=== PATIENT | male | born 1955 | race Caucasian/White ===

== ENCOUNTER → 2017-12-24 | Outpatient (CLI) | payer OTHER ==
[~2017-12-24] MED LIST: ASPIRIN81 M1 PO; CLARAVIS10 MG PO; COREG25 MG PO; DILTIAZEM60 MG PO; HYDROCHLOROTHIA25 M1 PO; IRON325 M1 PO; IRON50 MG PO; ISOSORBIDE30 MG PO; KLOR-CON M1010 ME1 PO; LABETALOL200 MG PO; LASIX20 MG PO; LEVOTHYROXIN0.125 MG PO; LISINOPRIL/HCTZ1 TA3 PO; LOSARTAN POTAS100 MG PO; METOPROLOL SR25 MG PO; MUCINEX DM 30/61 TAB PO; NITROQUICK0.3 MG SL; PREVACID30 M1 PO; SYNTHROID,LEV150 MCG PO; TYLENOL650 M1 PO; VITAMIN D31000 I1 PO; VYTORIN 10 MG-21 TA2 PO; [UNRECOGNIZED DRUG - CODE] PO
--- NOTE | ~2017-12-24 | ST ---
[place], [place] EXERCISE STRESS TEST REPORT NAME: JHONATHAN PIMENTEL UNIT #: [id number] ROOM: DOCTOR: ROD PAREDES [facility],DARIEL BIRTHDATE: [birth year] DOS: 12/24/2017 LEXISCAN REPORT The patient received Lexiscan 0.4 mg over 10 seconds. Heart rate is 98. No ischemic changes on EKG. Isotope was injected and the patient tolerated the procedure well. No complication noted. Blood pressure is 156/90. Myocardial perfusion scan to follow. DAIREL VELASCO MD CM:STRESS:EXERCISE STRESS TEST REPORT [id number] DARIEL VELASCO MD [facility]
== END | disposition home or self-care (01) ==
LOC: CARD 01:29
DX: I25.110 Atherosclerotic heart disease of native coronary artery with unstable angina pectoris (principal); R53.81 Other malaise

== ENCOUNTER 2018-04-20 09:21 | Emergency (ER) | payer OTHER ==
[~2018-04-20] VITALS: Wt 136.1 kg
[2018-04-20 09:38] LABS: BASO % 0.4 % (0.0-1.0); EOS # 0.2 10*3/uL (0.0-0.4); EOS % 1.9 % (1.0-4.0); HEMATOCRIT 35.9 % (42.0-52.0); HEMOGLOBIN 11.5 g/dl (14.0-18.0); LYMPH % 12.6 % (27.0-41.0); MEAN CELL VOLUME 91.8 fl (80.0-94.0); MEAN CORPUSCULAR HGB 29.4 pg (27.0-31.0); MEAN PLATELET VOLUME 10.8 fl (9.6-12.3); MONO # 0.8 10*3/uL (0.1-1.0); MONO % 10.6 % (3.0-9.0); NEUT # 5.8 10*3/uL (2.3-7.9); PLATELET COUNT AUTOMATED 99 10*3/uL (130-400); RED BLOOD COUNT 3.91 10*6/uL (4.50-5.90); RED CELL DISTRI WIDTH 16.9 % (0-14.5); WHITE BLOOD COUNT 7.8 10*3/uL (4.8-10.8)
[2018-04-20 09:57] LABS: ALBUMIN 3.1 gm/dl (3.1-4.5); CREATININE 1.74 mg/dL (0.70-1.30); POTASSIUM 4.7 mmol/L (3.5-5.1); TOTAL PROTEIN 6.7 gm/dL (6.4-8.2)
[2018-04-20 12:11] VITALS: BP 130/71
== END 2018-04-20 12:48 | disposition home or self-care (01) ==
LOC: ED 09:21
PROVIDERS: Emergency Medicine
DX: R51 Headache (principal); Z88.8 Allergy status to other drugs, medicaments and biological substances; Z79.82 Long term (current) use of aspirin; Z79.899 Other long term (current) drug therapy; Z90.49 Acquired absence of other specified parts of digestive tract

== ENCOUNTER → 2018-10-20 | Outpatient (CLI) | payer OTHER ==
[~2018-10-20] MED LIST changes: +RANEXA500 M1 PO
[2018-10-20 12:17] LABS: HEMATOCRIT 40.6 % (42.0-52.0); HEMOGLOBIN 12.5 g/dl (14.0-18.0); MEAN CELL VOLUME 92.1 fl (80.0-94.0); MEAN CORPUSCULAR HGB 28.3 pg (27.0-31.0); MEAN CORPUSCULAR HGB CONC 30.8 g/dl (33.0-37.0); MEAN PLATELET VOLUME 10.9 fl (9.6-12.3); PLATELET COUNT AUTOMATED 158 10*3/uL (130-400); RED BLOOD COUNT 4.41 10*6/uL (4.50-5.90); RED CELL DISTRI WIDTH 16.1 % (0-14.5); WHITE BLOOD COUNT 6.8 10*3/uL (4.8-10.8)
[2018-10-20 12:41] LABS: ATYPICAL LYMPHS 2 % (0-0); PLATELET SUFFICIENCY NORMAL (NORMAL); TOTAL CELLS COUNTED 100 #CELLS
[2018-10-20 12:51] LABS: ALBUMIN 3.5 gm/dl (3.1-4.5); BUN 11 mg/dl (7-24); CHLORIDE 104 mmol/L (98-107); POTASSIUM 4.2 mmol/L (3.5-5.1); SODIUM 137 mmol/L (136-145)
[2018-10-20 12:54] LABS: ALKALINE PHOSPHATASE 114 U/L (45-117); CREATININE 1.27 mg/dL (0.70-1.30); SGOT/AST 12 IU/L (3-35); SGPT/ALT 12 U/L (12-78); TOTAL PROTEIN 7.2 gm/dL (6.4-8.2)
== END | disposition home or self-care (01) ==
LOC: LAB 11:49
PROVIDERS: Internal Medicine Cardiovascular Disease
DX: I25.700 Atherosclerosis of coronary artery bypass graft(s), unspecified, with unstable angina pectoris (principal); R07.2 Precordial pain

== ENCOUNTER → 2018-10-21 | Outpatient (CLI) | payer OTHER ==
--- NOTE | ~2018-10-21 | ST ---
[place], [place] EXERCISE STRESS TEST REPORT NAME: JHONATHAN PIMENTEL [facility] #: [id number] UNIT #: [id number] ROOM: DOCTOR: GIUSEPPE BALL MD BIRTHDATE: [birth year] DOS: 10/21/2018 LEXISCAN STRESS EKG REPORT REFERRING PHYSICIANS: Dr. Mixon and Dr. Catarina Ball. INDICATION: Chest pain. PROCEDURE: The patient underwent standard protocol Lexiscan stress EKG, the patient was baseline. EKG showed normal sinus rhythm, nonspecific ST-T wave changes with rare PVCs. The patient's baseline heart rate was 87 with a blood pressure of 160/100. The patient's peak heart rate was 102 with blood pressure 140/108. The patient had no chest pain, no EKG changes. The patient was noted to have some fairly frequent PVCs. SUMMARY OF FINDINGS: Unremarkable Lexiscan stress EKG. Please see separate report for perfusion scan imaging. GIUSEPPE BALL MD CM:STRESS:EXERCISE STRESS TEST REPORT [id number] GIUSEPPE BALL MD
== END | disposition home or self-care (01) ==
LOC: CARD 01:08
DX: I25.700 Atherosclerosis of coronary artery bypass graft(s), unspecified, with unstable angina pectoris (principal); I34.8 Other nonrheumatic mitral valve disorders

== ENCOUNTER 2022-01-13 14:20 | Inpatient (IN) | payer OTHER ==
[~2022-01-13] VITALS: Ht 182.8 cm; Wt 107.2 kg
[~2022-01-13 14:20] MED LIST changes: +AMITRIPTYLINE10 MG PO; +APRESOLINE25 MG PO; +COREG12.5 M1 PO; +DOXYCYCLINE MO100 M1 PO; +DULE1ARO INH; +FEROSUL325 MG PO; +FUROSEMIDE40 MG PO; +LEVOTHYROXINE175 MCG PO; +LIPITOR40 MG PO; +XARE20MG PO
[2022-01-13 14:27] VITALS: BP 87/64
[2022-01-13 15:02] VITALS: BP 92/56
[2022-01-13 15:27] LABS: CREATININE 1.78 mg/dL (0.70-1.30); POTASSIUM 4.7 mmol/L (3.5-5.1); TOTAL PROTEIN 6.2 gm/dL (6.4-8.2)
[2022-01-13 16:48] VITALS: BP 108/62
[2022-01-13 19:49] VITALS: BP 118/68
[2022-01-13 20:15] VITALS: BP 127/89
[2022-01-13 21:48] LABS: BASO % 0.2 % (0.0-1.0); EOS % 0.2 % (1.0-4.0); HEMATOCRIT 46.7 % (42.0-52.0); LYMPH # 0.9 10*3/uL (1.3-4.4); MEAN CORPUSCULAR HGB 27.9 pg (27.0-31.0); MEAN PLATELET VOLUME 13.2 fl (9.6-12.3); MONO # 1.1 10*3/uL (0.1-1.0); NEUT # 6.9 10*3/uL (2.3-7.9); PLATELET COUNT AUTOMATED 116 10*3/uL (130-400); RED BLOOD COUNT 5.19 10*6/uL (4.50-5.90); RED CELL DISTRI WIDTH 16.4 % (0-14.5); WHITE BLOOD COUNT 9.1 10*3/uL (4.8-10.8)
[2022-01-13 21:59] LABS: ACT PARTIAL THROMBO TIME 39.6 SECONDS (20.0-32.1); INTERNATIONAL NORM RATIO 1.3 (2.0-3.5)
[2022-01-14] VITALS: BP 115/61
[2022-01-14 08:00] VITALS: BP 125/93
[2022-01-14 08:09] LABS: BASO % 0.3 % (0.0-1.0); EOS % 0.3 % (1.0-4.0); HEMATOCRIT 48.1 % (42.0-52.0); LYMPH # 0.9 10*3/uL (1.3-4.4); LYMPH % 11.7 % (27.0-41.0); MEAN CELL VOLUME 90.2 fl (80.0-94.0); MEAN CORPUSCULAR HGB 28.3 pg (27.0-31.0); MEAN CORPUSCULAR HGB CONC 31.4 g/dl (33.0-37.0); MEAN PLATELET VOLUME 12.4 fl (9.6-12.3); MONO # 0.8 10*3/uL (0.1-1.0); MONO % 10.3 % (3.0-9.0); NEUT % 75.6 % (47.0-73.0); PLATELET COUNT AUTOMATED 143 10*3/uL (130-400); RED BLOOD COUNT 5.33 10*6/uL (4.50-5.90); RED CELL DISTRI WIDTH 16.8 % (0-14.5); WHITE BLOOD COUNT 7.9 10*3/uL (4.8-10.8)
[2022-01-14 08:21] LABS: INTERNATIONAL NORM RATIO 1.2 (2.0-3.5)
[2022-01-14 08:26] LABS: CREATININE 1.6 mg/dL (0.70-1.30); POTASSIUM 4.3 mmol/L (3.5-5.1); TOTAL PROTEIN 6.7 gm/dL (6.4-8.2)
[2022-01-14 12:00] VITALS: BP 140/80
[2022-01-14 16:00] VITALS: BP 76/48
[2022-01-14 20:00] VITALS: BP 96/68
[2022-01-14 21:05] VITALS: BP 118/70
[2022-01-15] VITALS: BP 125/72
[2022-01-15 06:27] LABS: BASO % 0.2 % (0.0-1.0); EOS % 0.1 % (1.0-4.0); HEMATOCRIT 40.5 % (42.0-52.0); LYMPH # 0.9 10*3/uL (1.3-4.4); LYMPH % 9.3 % (27.0-41.0); MEAN CELL VOLUME 91.8 fl (80.0-94.0); MEAN CORPUSCULAR HGB 28.6 pg (27.0-31.0); MEAN CORPUSCULAR HGB CONC 31.1 g/dl (33.0-37.0); MEAN PLATELET VOLUME 12.9 fl (9.6-12.3); MONO # 1.1 10*3/uL (0.1-1.0); MONO % 11.5 % (3.0-9.0); NEUT # 7.1 10*3/uL (2.3-7.9); NEUT % 77.2 % (47.0-73.0); PLATELET COUNT AUTOMATED 135 10*3/uL (130-400); RED BLOOD COUNT 4.41 10*6/uL (4.50-5.90); RED CELL DISTRI WIDTH 16.6 % (0-14.5); WHITE BLOOD COUNT 9.2 10*3/uL (4.8-10.8)
[2022-01-15 06:29] LABS: BUN 37 mg/dl (7-24); CHLORIDE 106 mmol/L (98-107); POTASSIUM 4.4 mmol/L (3.5-5.1); SODIUM 133 mmol/L (136-145)
[2022-01-15 08:00] VITALS: BP 130/72
[2022-01-15 12:00] VITALS: BP 114/80
[2022-01-15 12:05] LABS: BILIRUBIN Negative (Negative); BLOOD Negative (Negative); CLARITY Clear (Clear); COLOR Yellow (Yellow); GLUCOSE Negative (Negative); KETONE Negative (Negative); LEUKO ESTERASE Negative (Negative); NITRITE Negative (Negative); PH 6.5 (4.5-8.0); SPECIFIC GRAVITY >= 1.030 (1.001-1.030); UROBILINOGEN 0.2 E.U./dl (0.0-1.0)
[2022-01-15 12:16] LABS: EPITHELIAL CELLS 0-2; RBC 0-2 rbc/hpf (0-2); WBC 0-2 wbc/hpf (0-5)
[2022-01-15 16:00] VITALS: BP 118/78
[2022-01-15 20:00] VITALS: BP 143/90
[2022-01-16] VITALS: BP 132/86
[2022-01-16 06:08] LABS: BUN 29 mg/dl (7-24); CHLORIDE 103 mmol/L (98-107); CREATININE 1.33 mg/dL (0.70-1.30); POTASSIUM 4.3 mmol/L (3.5-5.1); SODIUM 133 mmol/L (136-145)
[2022-01-16 06:20] LABS: BASO % 0.2 % (0.0-1.0); EOS % 0.2 % (1.0-4.0); HEMATOCRIT 38.3 % (42.0-52.0); LYMPH # 0.7 10*3/uL (1.3-4.4); LYMPH % 8.8 % (27.0-41.0); MEAN CELL VOLUME 90.1 fl (80.0-94.0); MEAN CORPUSCULAR HGB 28.2 pg (27.0-31.0); MEAN CORPUSCULAR HGB CONC 31.3 g/dl (33.0-37.0); MEAN PLATELET VOLUME 12.4 fl (9.6-12.3); MONO % 11.8 % (3.0-9.0); NEUT # 6.4 10*3/uL (2.3-7.9); NEUT % 77.8 % (47.0-73.0); PLATELET COUNT AUTOMATED 119 10*3/uL (130-400); RED BLOOD COUNT 4.25 10*6/uL (4.50-5.90); RED CELL DISTRI WIDTH 16.5 % (0-14.5); WHITE BLOOD COUNT 8.2 10*3/uL (4.8-10.8)
[2022-01-16 08:00] VITALS: BP 128/80
[2022-01-16 12:00] VITALS: BP 137/71
[2022-01-16 16:00] VITALS: BP 120/67
[2022-01-16 20:00] VITALS: BP 147/83
[2022-01-17] VITALS: BP 146/96
[2022-01-17 06:01] LABS: BUN 22 mg/dl (7-24); CHLORIDE 104 mmol/L (98-107); CREATININE 1.34 mg/dL (0.70-1.30); POTASSIUM 4.3 mmol/L (3.5-5.1); SODIUM 134 mmol/L (136-145)
[2022-01-17 06:15] LABS: BASO % 0.2 % (0.0-1.0); EOS % 0.2 % (1.0-4.0); HEMATOCRIT 37.5 % (42.0-52.0); LYMPH # 0.9 10*3/uL (1.3-4.4); LYMPH % 10.4 % (27.0-41.0); MEAN CELL VOLUME 90.1 fl (80.0-94.0); MEAN CORPUSCULAR HGB 28.6 pg (27.0-31.0); MEAN CORPUSCULAR HGB CONC 31.7 g/dl (33.0-37.0); MEAN PLATELET VOLUME 11.7 fl (9.6-12.3); MONO # 0.9 10*3/uL (0.1-1.0); MONO % 10.4 % (3.0-9.0); NEUT # 6.9 10*3/uL (2.3-7.9); NEUT % 77.9 % (47.0-73.0); PLATELET COUNT AUTOMATED 122 10*3/uL (130-400); RED BLOOD COUNT 4.16 10*6/uL (4.50-5.90); RED CELL DISTRI WIDTH 16.5 % (0-14.5); WHITE BLOOD COUNT 8.8 10*3/uL (4.8-10.8)
[2022-01-17 08:00] VITALS: BP 150/96
[2022-01-17 12:00] VITALS: BP 104/68
[2022-01-17] MEDS ORDERED: COZAAR25 M1 PO (15:03)
[2022-01-17] MEDS ORDERED: CARVEDILOL6.25 MG PO (15:03)
== END 2022-01-17 19:15 | DRG 137 ==
LOC: ED 14:20 → EDHOLD 18:10 → 4E 18:10
PROVIDERS: Emergency Medicine; Family Medicine; Internal Medicine; ADMIT Family Medicine; ATTEND Family Medicine
DX: U07.1 COVID-19 (principal); E86.0 Dehydration; G93.41 Metabolic encephalopathy; E87.1 Hypo-osmolality and hyponatremia; E43 Unspecified severe protein-calorie malnutrition; I13.0 Hypertensive heart and chronic kidney disease with heart failure and stage 1 through stage 4 chronic kidney disease, or unspecified chronic kidney disease; N18.32 Chronic kidney disease, stage 3b; I50.9 Heart failure, unspecified; F17.210 Nicotine dependence, cigarettes, uncomplicated; N17.0 Acute kidney failure with tubular necrosis; I48.0 Paroxysmal atrial fibrillation; I95.9 Hypotension, unspecified; J96.21 Acute and chronic respiratory failure with hypoxia; E80.6 Other disorders of bilirubin metabolism; E78.5 Hyperlipidemia, unspecified; I25.10 Atherosclerotic heart disease of native coronary artery without angina pectoris; E03.9 Hypothyroidism, unspecified; Z95.1 Presence of aortocoronary bypass graft; Z88.8 Allergy status to other drugs, medicaments and biological substances; Z79.82 Long term (current) use of aspirin; Z79.899 Other long term (current) drug therapy; Z68.32 Body mass index [BMI] 32.0-32.9, adult

== ENCOUNTER 2022-03-17 11:02 | Emergency (ER) | payer OTHER ==
[~2022-03-17] VITALS: Wt 111.6 kg
[~2022-03-17 11:02] MED LIST changes: +CARVEDILOL6.25 MG PO; +COZAAR25 M1 PO
[2022-03-17 11:31] LABS: BASO % 0.4 % (0.0-1.0); EOS # 0.1 10*3/uL (0.0-0.4); EOS % 0.9 % (1.0-4.0); HEMATOCRIT 29.3 % (42.0-52.0); LYMPH # 1.3 10*3/uL (1.3-4.4); LYMPH % 18.9 % (27.0-41.0); MEAN CELL VOLUME 96.1 fl (80.0-94.0); MEAN CORPUSCULAR HGB 28.9 pg (27.0-31.0); MEAN PLATELET VOLUME 9.1 fl (9.6-12.3); MONO # 0.5 10*3/uL (0.1-1.0); MONO % 6.5 % (3.0-9.0); NEUT # 5.1 10*3/uL (2.3-7.9); NEUT % 72.4 % (47.0-73.0); PLATELET COUNT AUTOMATED 267 10*3/uL (130-400); RED BLOOD COUNT 3.05 10*6/uL (4.50-5.90); RED CELL DISTRI WIDTH 17.2 % (0-14.5)
[2022-03-17] MEDS ORDERED: TYLENOL325 M1 PO (11:48)
[2022-03-17 11:49] LABS: CREATININE 2.46 mg/dL (0.70-1.30); POTASSIUM 4.5 mmol/L (3.5-5.1); TOTAL PROTEIN 6.2 gm/dL (6.4-8.2)
[2022-03-17 13:38] VITALS: BP 115/61
[2022-03-17 14:04] LABS: BILIRUBIN Negative (Negative); BLOOD Negative (Negative); CLARITY Clear (Clear); COLOR Yellow (Yellow); GLUCOSE Negative (Negative); KETONE Negative (Negative); LEUKO ESTERASE Negative (Negative); NITRITE Negative (Negative); SPECIFIC GRAVITY 1.015 (1.001-1.030); UROBILINOGEN 0.2 E.U./dl (0.0-1.0)
[2022-03-17 14:17] LABS: BACTERIA 3+; EPITHELIAL CELLS 0-2
== END 2022-03-17 15:20 | disposition home or self-care (01) ==
LOC: ED 11:02
PROVIDERS: Nurse Practitioner Family
DX: R42 Dizziness and giddiness (principal); E86.0 Dehydration; Z88.8 Allergy status to other drugs, medicaments and biological substances; Z79.899 Other long term (current) drug therapy; Z79.82 Long term (current) use of aspirin; Z98.890 Other specified postprocedural states; Z87.891 Personal history of nicotine dependence

== ENCOUNTER → 2022-06-05 | Day surgery (SDC) | payer OTHER ==
[~2022-06-05] VITALS: Ht 175.2 cm; Wt 90.7 kg
[~2022-06-05] MED LIST changes: +TYLENOL325 M1 PO
[2022-06-05 08:53] VITALS: BP 179/96
[2022-06-05 09:21] VITALS: BP 147/92
[2022-06-05 09:36] VITALS: BP 174/101
[2022-06-05 09:51] VITALS: BP 177/103
== END | disposition home or self-care (01) ==
LOC: SDC 06-02 11:00
PROVIDERS: ATTEND Surgery
DX: D64.9 Anemia, unspecified (principal); K29.50 Unspecified chronic gastritis without bleeding; K57.30 Diverticulosis of large intestine without perforation or abscess without bleeding; K44.9 Diaphragmatic hernia without obstruction or gangrene; I11.0 Hypertensive heart disease with heart failure; I50.9 Heart failure, unspecified; K21.9 Gastro-esophageal reflux disease without esophagitis; I25.10 Atherosclerotic heart disease of native coronary artery without angina pectoris; E03.9 Hypothyroidism, unspecified; I48.91 Unspecified atrial fibrillation; I25.2 Old myocardial infarction; E78.00 Pure hypercholesterolemia, unspecified; J44.9 Chronic obstructive pulmonary disease, unspecified; F17.210 Nicotine dependence, cigarettes, uncomplicated; Z95.1 Presence of aortocoronary bypass graft